=== PATIENT | male | born 1950 | race African-American/Black ===

== ENCOUNTER 2018-11-30 19:40 | Emergency (ER) | payer BC, OTHER ==
--- NOTE | 2018-11-30 19:48 | PDOC ---
History of Present Illness - General Stated Complaint: SHORTNESS OF BREATH Time Seen by Provider: 11/30/18 19:45 History Source: Patient - History of Present Illness Initial Comments: 11/30/18 19:53 The patient is a 67 year old male with a PMH of Heroin abuse (1 bag, 3x weekly) , COPD (not on home O2) who was BIBA for 1-1/2 weeks of worsening shortness of breath, chest pressure and right arm pain. Endorses productive cough (whitish phlegm). Also notes 2 month h/o orthopneaand sometimes wakes up in the night and feels he is short of breath. States he had chest pain and shortness of breath in August and he was hospitalized at [facility] for 2 days. H/o decreased PO intake and weight loss. Patient denies headache, lightheadedness. Denies fever, chills. Denies nausea, vomiting, diarrhea, abdominal pain. NKDA As per EMR, patient has no previous h/o evaluation in our ED. Previous evaluation at [facility]. Past History - Past Medical History Home Medications: Ambulatory Orders Azithromycin [Zithromax Tri-Scott (3 DAYS) -] 500 mg PO DAILY #3 tablet 11/30/18 Prednisone [Deltasone] 40 mg PO DAILY 4 Days #8 tablet 11/30/18 Review of Systems - Review of Systems Constitutional: No: Fever HEENTM: No: Recent change in vision Respiratory: Yes: Orthopnea, Shortness of Breath, Wheezing, Productive cough. No: Hemoptysis Cardiac (ROS): Yes: Chest Pain. No: Lightheadedness, Palpitations, Syncope ABD/GI: No: Constipated, Diarrhea, Nausea, Vomiting *Physical Exam - Physical Exam General Appearance: Yes: Thin HEENT: positive: Normal Voice, Hearing Grossly Normal Neck: positive: Trachea midline, Supple Respiratory/Chest: positive: Other (Scattered wheezes B/L; abdominal retractions ; no conversational dyspnea, SpO2 low 90's on RA) Cardiovascular: positive: S1, S2. negative: Edema, JVD Vascular Pulses: Dorsalis-Pedis (R): 2+, Doralis-Pedis (L): 2+ Gastrointestinal/Abdominal: positive: Normal Bowel Sounds, Soft, Other ( reducible abdominal hernia) Extremity: positive: Normal Capillary Refill, Normal Inspection Integumentary: positive: Normal Color, Dry, Warm Heart Score/ECG Review - ECG Impressions Comment:: 11/30/18 22:46 HR 62, LAD with LBB, no KIKI/STD/TWI - non acute (see MDM in EMR) ED Treatment Course - LABORATORY CBC & Chemistry Diagram: 11/30/18 20:20 11/30/18 20:20 Medical Decision Making - Medical Decision Making 11/30/18 21:11 67 year old male with shortness of breath. VS unremarkable Mild abdominal retractions on PE, intermittently SpO2 high 80's off O2. Will give symptomatic COPD treatment, r/o ACS. Reassess. EKG shows LAD and LBBB as per attending discussion with [facility] ED, LBBB not acute 11/30/18 21:57 CXR negative for infiltrate/consolidation Troponin (-) x1 11/30/18 22:02 Patient reassessed @ bedside S/p Duo Neb x3, SpO2 96% with non-labored respirations Will discharge home with return precautions and PMD follow-up, Z pack and 4 day course of steroid. Clinical Impression: COPD Exacerbation I discussed the physical exam findings, ancillary test results and final diagnoses with the patient. I answered all of the patient's questions. The patient was satisfied with the care received and felt comfortable with the discharge plan and treatment plan. The patient will return to the Emergency Department with any new, persistent or worsening symptoms. *DC/Admit/Observation/Transfer Diagnosis at time of Disposition: COPD exacerbation - Discharge Dispostion Disposition: HOME Condition at time of disposition: Fair Decision to Admit order: No - Prescriptions Prescriptions: Azithromycin [Zithromax Tri-Scott (3 DAYS) -] 500 mg PO DAILY #3 tablet Prednisone [Deltasone] 40 mg PO DAILY 5 Days #10 tablet - Referrals Referrals: Cuco Rocha MD [Primary Care Provider] - Braulio Dalton MD [Staff Physician] - - Patient Instructions Additional Instructions: We have sent an antibiotic and steroid to your pharmacy. Please take as directed Please follow up with your primary care doctor in the next 1 week. We have provided a referral to a billiard table repairer or you can call your insurance company for list of doctors, please make an appointment for evaluation in the next 1 week. Your care is no complete until you are evaluated by your primary care doctor and a billiard table repairer. Return to the Emergency Department for any new/worsening/concerning symptoms. - Post Discharge Activity
[2018-11-30 20:08] VITALS: BP 133/77; PULSE 69; BMI 17.5
[2018-11-30] MEDS ORDERED: methylPREDNISolone NA SUCC 125 MG/2 ML VIAL IVPB ONE (20:08)
[2018-11-30] MEDS ORDERED: ALBUTEROL SO4 2.5/IPRATROPIUM 0.5 INH SOL 3 ML VIAL.NEB. NEB ONE ×4 (20:08→20:52)
[2018-11-30] MEDS ORDERED: ASPIRIN 81 MG CHEWABLE TABLETS PO ONE (20:09)
[2018-11-30] MEDS ORDERED: SODIUM CHLORIDE 0.9% 1000 ML INFUS.BAG IV ONE (20:11)
[2018-11-30] MEDS ORDERED: methylPREDNISolone NA SUCC 125 MG/2 ML VIAL ONE (20:52)
[2018-11-30] MEDS ORDERED: ASPIRIN 81 MG CHEWABLE TABLETS ONE (20:52)
[2018-11-30] MEDS ORDERED: AZITHROMYCIN IVPB 500 MG in DEXTROSE 5%-WATER - 250 ML IVPB ONE (20:58)
[2018-11-30 21:01] LABS: BASO % 0.5 % (0-2.0); EOS % 9.6 % (0-4.5); HEMATOCRIT 36.8 % (35.4-49); LYMPH % 14.8 % (8-40); MCH 28.5 pg (25.7-33.7); MCHC 32.7 g/dl (32.0-35.9); MEAN PLT VOLUME 7.6 fl (7.5-11.1); MONO % 8.9 % (3.8-10.2); NEUT % 66.2 % (42.8-82.8); PLATELET COUNT 188 K/MM3 (134-434); RBC 4.22 M/mm3 (4.00-5.60); RDW 13.8 % (11.9-15.9); WHITE BLOOD COUNT 6.8 K/mm3 (4.0-10.0)
[2018-11-30 21:05] VITALS: TEMP 98.2
[2018-11-30] MEDS ORDERED: AZITHROMYCIN IVPB 500 MG/250 ML BAG IVPB ONE (21:13)
--- NOTE | 2018-11-30 21:15 | PDOC ---
Documentation entered by Prakash Recinos SCRIBE, acting as scribe for Cara Beltrán DO. Cara Beltrán DO: This documentation has been prepared by the Jorje jerome Daniel, SCRIBE, under my direction and personally reviewed by me in its entirety. I confirm that the documentation accurately reflects all work, treatment, procedures, and medical decision making performed by me. Attending Attestation - Resident Resident Name: Evelia Stock - ED Attending Attestation I have performed the following: I have examined & evaluated the patient, The case was reviewed & discussed with the resident, I agree w/resident's findings & plan, Exceptions are as noted - HPI HPI: 11/30/18 20:13 The patient is a 67 year old male with a past medical history of heroin abuse ( 1 bag 3 times a week, last use yesterday) and COPD here today for evaluation of shortness of breath. The patient reports that he has been having shortness of breath for the past 2 hours that is worse with activity and notes associated chest tightness, left arm pain to the wrist, night sweats, and cough productive of white sputum. He also notes decreased PO intake and weight loss. Patient reports that he had one previous episode 2 months ago and went to [facility] but left AMA. Patient confirms orthopnea and states that he sleeps sitting up and sometimes wakes up with shortness of breath. Patient denies headache, lightheadedness. Denies fever, chills. Denies nausea, vomiting, diarrhea, abdominal pain. - Physicial Exam PE: 11/30/18 20:48 Constitutional: Awake, alert, oriented. No acute distress. Head: Normocephalic. Atraumatic Eyes: PERRL. EOMI. Conjunctivae are not pale. ENT: Mucous membranes are moist and intact. Posterior pharynx without exudates or erythema. Uvula midline. Neck: Supple. Full ROM. No lymphadenopathy. Cardiovascular: Regular rate. Regular rhythm. S1, S2 regular. Distal pulses are 2+ and symmetric. Pulmonary/Chest: +mild increase work of breath with mild accessory muscle use. +diffuse wheezing. No conversational dyspnea. 95 O2 sat on room air. No rales or rhonchi. Abdominal: +small reducible umbilical hernia. Soft and non-distended. There is no tenderness. No rebound, guarding or rigidity. No organomegaly. No palpable masses. Good bowel sounds. Back: No CVA tenderness. Musculoskeletal: No edema. No cyanosis. No clubbing. Full range of motion in all extremities. No calf tenderness. Radial/pedal pulses are intact and 2+ bilaterally Skin: Skin is warm and dry. No petechiae. No purpura. Neurological: Alert and oriented to person, place, and time. Cranial nerves II -XII are grossly intact. Normal speech. Strength is grossly symmetric. No sensory deficits. Psychiatric: Good eye contact. Normal interaction, affect and behavior. - Medical Decision Making 11/30/18 21:13 I, Dr. Cara Beltrán, DO, attest that this document has been prepared under my direction and personally reviewed by me in its entirety. I further attest, that it accurately reflects all work, treatment, procedures and medical decision -making performed by me. 11/30/18 21:13 a/p: 67yo male with cp and sob - hx of copd, wheezing, used inhaler x 2 at home with short relief -pt 94-5% on RA -wheezing diffusely, slight increased wob -will send labs, ekg, cxr -cough- white sputum -no fevers -no hematemesis or hemoptysis -pt states he has not been in the hospital since August and has not been on steroids in months -will give nebs, steroids, ivf hydration -will monitor and reassess 11/30/18 21:18 cxr clear no elevated wbc pt ambulatory in the ED to the bathroom with acute resp distress 11/30/18 22:27 pt feeling much better pulse ox 100%ra lungs with soft end expiratory wheezing pt denies cp/sob family at the bedside states they were all just debating politics pt stable for dc to home with pulmonary and pmd follow up as an outpt discussed need for follow up and all reasons to return to the ED stable for dc to home Heart Score/ECG Review - ECG Intrepretation Comment:: 11/30/18 21:14 sinus at 62, L axis, lbbb, no acute st/t wave findings - discussed with [facility] - hx of LBBB
[2018-11-30 21:26] LABS: ALBUMIN 3.6 g/dl (3.4-5.0); ALK PHOS 48 U/L (45-117); ANION GAP 5 MMOL/L (8-16); BILIRUBIN,TOTAL 0.5 mg/dL (0.2-1); BLOOD UREA NITROGEN 14.5 mg/dL (7-18); CALCIUM 8.3 mg/dL (8.5-10.1); CHLORIDE 106 mmol/L (98-107); CO2 29 mmol/L (21-32); CREATININE 0.6 mg/dL (0.55-1.3); GLUCOSE,RANDOM 129 mg/dL (74-106); POTASSIUM 3.5 mmol/L (3.5-5.1); SGOT/AST 32 U/L (15-37); SGPT/ALT 22 U/L (13-61); SODIUM 140 mmol/L (136-145); TOT PROT 6.5 g/dl (6.4-8.2)
[2018-11-30 22:07] LABS: ARTERIAL BLD GAS O2 SATURATION 98.9 % (95-98); ARTERIAL BLOOD GAS BASE EXCESS -0.2 meq/l (-2-2); ARTERIAL BLOOD GAS PCO2 44.5 mmHg (35-45); ARTERIAL BLOOD GAS PO2 128 mmHg (80-105); ARTERIAL BLOOD GAS pH 7.36 (7.35-7.45); CARBOXYHEMOGLOBIN 1.4 % (0-2)
[2018-11-30 22:14] LABS: COCAINE, UR NEGATIVE ng/ml (CUTOFF=300); METHADONE, UR NEGATIVE ng/ml (CUTOFF=300); PHENCYCLIDINE,URINE NEGATIVE ng/ml (CUTOFF=25); URINE AMPHETAMINES NEGATIVE ng/ml (CUTOFF=500); URINE BARBITURATES NEGATIVE ng/ml (CUTOFF=200); URINE BENZODIAZEPINES NEGATIVE ng/ml (CUTOFF=200)
[2018-11-30 22:17] LABS: OPIATES, URI POSITIVE ng/ml (CUTOFF=300)
--- NOTE | 2018-12-01 11:52 | EKG ---
Test Reason : Blood Pressure : / mmHG Vent. Rate : 062 BPM Atrial Rate : 062 BPM P-R Int : 194 ms QRS Dur : 128 ms QT Int : 456 ms P-R-T Axes : 065 -47 055 degrees QTc Int : 462 ms NORMAL SINUS RHYTHM LEFT AXIS DEVIATION LEFT BUNDLE BRANCH BLOCK ABNORMAL ECG NO PREVIOUS ECGS AVAILABLE Confirmed by DRE CHISHOLM MD ([id number]) on 12/01/2018 11:52:11 AM Referred By: Confirmed By:DRE CHISHOLM MD
== END 2018-11-30 22:50 | disposition home or self-care (01) ==
LOC: JER 19:40
PROC: 3E0F7GC Introduction of Other Therapeutic Substance into Respiratory Tract, Via Natural or Artificial Opening (ICD-10-PCS; principal; 2018-11-30)
PROC: 3E0333Z Introduction of Anti-inflammatory into Peripheral Vein, Percutaneous Approach (ICD-10-PCS; 2018-11-30)
PROC: 3E03329 Introduction of Other Anti-infective into Peripheral Vein, Percutaneous Approach (ICD-10-PCS; 2018-11-30)
DX: J44.1 Chronic obstructive pulmonary disease with (acute) exacerbation (principal); F11.10 Opioid abuse, uncomplicated; K42.9 Umbilical hernia without obstruction or gangrene
CPT/HCPCS: 36415; 36600; 71045-TC-FY; 80053; 80307; 82375; 82550; 82553; 82803; 83050; 83880; 84484; 85025; 93005; 93010; 99282-25; J7030